=== PATIENT | female | born 1990 | race African-American/Black ===

== ENCOUNTER 2019-11-27 04:28 | Emergency (ER) | payer MEDICAID ==
[~2019-11-27] VITALS: Ht 180.3 cm; Wt 131.8 kg
[2019-11-27] MEDS ORDERED: OxyCODONE HCL 5 MG IR TABLET PO ONE (06:30)
[2019-11-27 06:49] VITALS: BP 150/95
== END 2019-11-27 07:25 | disposition home or self-care (01) ==
LOC: EMS 04:28
DX: S42.402A Unspecified fracture of lower end of left humerus, initial encounter for closed fracture (principal); V49.9XXA Car occupant (driver) (passenger) injured in unspecified traffic accident, initial encounter; Y93.89 Activity, other specified; Y92.89 Other specified places as the place of occurrence of the external cause; Y99.8 Other external cause status; F17.200 Nicotine dependence, unspecified, uncomplicated
CPT/HCPCS: 73030-TC; 73060-TC; 73090-TC; Z7502; Z7610